=== PATIENT | male | born 1930 | race Caucasian/White ===

== ENCOUNTER → 2017-09-28 | Outpatient (CLI) | payer MEDICARE, OTHER ==
[2017-07-01 10:39] VITALS: BMI 15.3
[~2017-09-28] MED LIST: ACET-1966 PO; ACET-2007 PO; ALEN70TA43 PO; AMLO-96 PO; AMLO-99 PO; AMLO2.5T74 PO; AMOX-559 PO; ASP325 PO; ASPI-1471 PO; ASPI-715 PO; ASPI-719 PO; CALC-515 PO; CALC-521 PO; CALC-852 PO; CEP500 PO; CHOL400C10 PO; CHOL400T29 PO; CIP500 PO; DOC100 PO; DOCU-299 PO; DOCU-416 PO; ENO30I SC; ENOX40DI8 SQ; FERR-53 PO; GLUCOSAMINE 1,1 EACH PO; LOR10 PO; LORA-802 PO; LUTE20CA11 PO; MIRA50TA PO; MULT-1335 PO; MULT-865 PO; NAPR220T52 PO; OMEG-11 PO; OMEP-114 PO; OMEP-125 PO; OMEP-218 PO; OXYC-373 PO; OXYGENHOME INH; PER PO; PNEU0.5D3 IM; POTA-23 PO; PROM12.546 PO; PSYL1PAC24 PO; RANI-315 PO; SENN-274 PO; SENN8.6T34 PO; TADA20TA33 PO; TROS20TA5 PO; TROS60CA PO; WARF-1 PO; ZINC50TA43 PO; [UNRECOGNIZED DRUG - CODE] PO; [UNRECOGNIZED DRUG - CODE] PO; [UNRECOGNIZED DRUG - SUPPLY]
[2017-09-28 08:35] LABS: INR 3.42
== END ==
LOC: ZZSPRING 00:20
PROVIDERS: ATTEND Family Medicine
DX: I10 Essential (primary) hypertension (principal); Z79.01 Long term (current) use of anticoagulants
CPT/HCPCS: 36415; 82310; 82374; 82435; 82565; 82947; 84132; 84295; 84520; 85610

== ENCOUNTER → 2017-10-05 | Outpatient (CLI) | payer MEDICARE, OTHER ==
[2017-07-01 10:39] VITALS: BMI 15.3
[2017-10-05 08:50] LABS: INR 2.09
== END ==
LOC: ZZSPRING 03:07
PROVIDERS: ATTEND Family Medicine
DX: Z51.81 Encounter for therapeutic drug level monitoring (principal); Z79.01 Long term (current) use of anticoagulants
CPT/HCPCS: 36415; 85610

== ENCOUNTER → 2017-10-19 | Outpatient (CLI) | payer MEDICARE, OTHER ==
[2017-07-01 10:39] VITALS: BMI 15.3
[2017-10-19 08:38] LABS: INR 1.65
== END ==
LOC: ZZSPRING 02:43
PROVIDERS: ATTEND Internal Medicine
DX: I63.9 Cerebral infarction, unspecified (principal)
CPT/HCPCS: 36415; 85610

== ENCOUNTER → 2017-11-02 | Outpatient (CLI) | payer MEDICARE, OTHER ==
[2017-07-01 10:39] VITALS: BMI 15.3
[~2017-11-02] MED LIST changes: +ACET-2031 PO
[2017-11-02 08:57] LABS: INR 2.03
== END ==
LOC: ZZSPRING 01:45
PROVIDERS: ATTEND Pharmacist Pharmacotherapy
DX: I63.9 Cerebral infarction, unspecified (principal)
CPT/HCPCS: 36415; 85610

== ENCOUNTER → 2017-11-11 | Outpatient (CLI) | payer MEDICARE, OTHER ==
[2017-07-01 10:39] VITALS: BMI 15.3
--- NOTE | 2017-11-11 17:21 | RADIOLOGY IMAGING REPORT ---
[place] [facility] [place] NAME: Tolu Katz : 1930 MR: [id number] V: [id number] EXAM DATE: ORDERING PHYSICIAN: HODA RAM TECHNOLOGIST: [place] [facility] [place] Tolu Katz : 1930 Visit/Account:[id number] Date of Sevice: 11/11/2017 Exam type: HIP RIGHT History: fall, hip pain, evaluate for FX Comparison: February 17, 2017. Findings: Left hip arthroplasty appears in good anatomic alignment. There are mild degenerative changes of the right hip joint. No evidence of acute fracture or dislocation involving the right hip. Old pubic b one fractures also again seen. There are surgical clips in the pelvis. Extensive spondylotic change s in the visual as lower lumbar spine also noted IMPRESSION: 1. There is no evidence of acute fracture station involving the right hip. Additional chronic findings as described above Report Dictated By: Aleida Mckeon MD at 11/11/2017 5:15 PM Report E-Signed By: Aleida Mckeon MD at 11/11/2017 5:17 PM WSN:[email or web address]
== END ==
LOC: RAD 15:25
PROVIDERS: ATTEND Nurse Practitioner Family
DX: M25.551 Pain in right hip (principal)

== ENCOUNTER → 2017-11-16 | Outpatient (CLI) | payer MEDICARE, OTHER ==
[2017-07-01 10:39] VITALS: BMI 15.3
== END ==
LOC: ZZSPRING 01:13
PROVIDERS: ATTEND Urology
DX: C61 Malignant neoplasm of prostate (principal)

== ENCOUNTER → 2017-11-16 | Outpatient (CLI) | payer MEDICARE, OTHER ==
[2017-07-01 10:39] VITALS: BMI 15.3
[2017-11-16 09:09] LABS: INR 2.27
== END ==
LOC: ZZSPRING 01:14
PROVIDERS: ATTEND Pharmacist Pharmacotherapy
DX: I63.9 Cerebral infarction, unspecified (principal)
CPT/HCPCS: 36415; 84153; 85610

== ENCOUNTER → 2017-11-17 | Outpatient (CLI) | payer MEDICARE, OTHER ==
[2017-07-01 10:39] VITALS: BMI 15.3
--- NOTE | 2017-11-17 15:36 | RADIOLOGY IMAGING REPORT ---
[place] [facility]: Tolu Katz : 1930 MR: [id number] V: [id number] EXAM DATE: ORDERING PHYSICIAN: KAMILLA HESTER TECHNOLOGIST: Location: [facility] Patient: Tolu Katz : 1930 Visit/Account:[id number] Date of Sevice: 11/17/2017 ABDOMEN PELVIS ESWL CYSTO W/O HISTORY: Kidney stones, back pain TECHNIQUE: Axial images acquired through the abdomen/pelvis. Coronal and sagittal reformatting also performed. No IV contrast administered. Dose Lowering Technique One of the following dose optimization techniques was utilized in the performance of this exam: Autom ated exposure control; adjustment of the mA and/or kV according to the patient's size; or use of an i terative reconstruction technique. Specific details can be referenced in the facility's radiology C T exam operational policy. COMPARISON: June 30, 2017 FINDINGS: Visualized lung bases: Increasing scarring and peribronchial thickening in the lung bases. Calcifie d granuloma in the right middle lobe unchanged . Mild dilatation of the descending thoracic aorta m easuring up to 3.7 cm. Extensive calcifications within the thoracic aorta noted are moderate coronar y artery calcifications Hepatobiliary: 2.3 cm left hepatic lobe cyst again noted. Additional tiny hypodensity posterior rig ht lobe also unchanged likely representing an additional cyst Spleen: Negative. Adrenals: Negative. Pancreas: Negative. Kidneys ureters and bladder: Multiple bilateral renal cysts are again seen in addition to several sma ller hypodensities which are too small to characterize. There are numerous nonobstructing calculi se en in both renal collecting systems; the largest on the right in the upper pole measuring 5 x 3 mm. The largest on the left in the lower pole measuring 9 x 4 mm The bladder is quite distended to just below the level the umbilicus. Genitalia: The pelvic structures are not ideally evaluated due to numerous artifacts from left hip a rthroplasty. There are numerous clips in the pelvis likely related to prior prostatectomy. GI: There Is extensive diverticulosis throughout the colon although no CT evidence of acute divertic ulitis. There is a large hiatal hernia Vessels/spaces/nodes: There is marked ectasia of the thoracic aorta extensive vascular calcification s. 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 Old comminuted fractures through the left-sided the pubi s. Extensive scoliosis of the thoracolumbar spine with extensive multilevel spondylotic changes. Additional findings: None pertinent. IMPRESSION: Increasing scarring and peribronchial thickening of the lung bases Mild dilatation of descending thoracic aorta measuring up to 3.7 centers in diameter. Extensive vasc ular calcination occasions are seen throughout the thoracic and abdominal aorta Numerous artifacts resulting calculi seen in the renal collecting systems bilaterally as discussed ab ove Bladder is quite distended to just below the level the umbilicus Additional chronic findings as described Report Dictated By: Aleida Mckeon MD at 11/17/2017 3:16 PM Report E-Signed By: Aleida Mckeon MD at 11/17/2017 3:32 PM WSN:[email or web address]
== END ==
LOC: CT 01:37
PROVIDERS: ATTEND Urology
DX: I25.10 Atherosclerotic heart disease of native coronary artery without angina pectoris (principal); N20.0 Calculus of kidney; C61 Malignant neoplasm of prostate; R91.8 Other nonspecific abnormal finding of lung field; I71.4 Abdominal aortic aneurysm, without rupture
CPT/HCPCS: 36415; 74176; 84153

== ENCOUNTER → 2017-12-15 | Outpatient (CLI) | payer MEDICARE, OTHER ==
[2017-07-01 10:39] VITALS: BMI 15.3
[2017-12-15 08:50] LABS: INR 2.19
== END ==
LOC: ZZSPRING 00:32
PROVIDERS: ATTEND Internal Medicine
DX: Z96.0 Presence of urogenital implants (principal); Z99.81 Dependence on supplemental oxygen; I82.591 Chronic embolism and thrombosis of other specified deep vein of right lower extremity
CPT/HCPCS: 36415; 85610

== ENCOUNTER → 2018-01-11 | Outpatient (CLI) | payer MEDICARE, OTHER ==
[2017-07-01 10:39] VITALS: BMI 15.3
[2018-01-11 08:18] LABS: INR 2.22
== END ==
LOC: ZZSPRING 00:01
PROVIDERS: ATTEND Pharmacist Pharmacotherapy
DX: I63.9 Cerebral infarction, unspecified (principal)
CPT/HCPCS: 36415; 85610

== ENCOUNTER → 2018-02-08 | Outpatient (CLI) | payer MEDICARE, OTHER ==
[2017-07-01 10:39] VITALS: BMI 15.3
[2018-02-08 08:32] LABS: INR 2.2
== END ==
LOC: ZZSPRING 02:11
PROVIDERS: ATTEND Pharmacist Pharmacotherapy
DX: Z51.81 Encounter for therapeutic drug level monitoring (principal); Z79.01 Long term (current) use of anticoagulants
CPT/HCPCS: 36415; 85610

== ENCOUNTER → 2018-03-08 | Outpatient (CLI) | payer MEDICARE, OTHER ==
[2017-07-01 10:39] VITALS: BMI 15.3
[2018-03-08 08:08] LABS: INR 2.03
== END ==
LOC: ZZSPRING 02:28
PROVIDERS: ATTEND Pharmacist Pharmacotherapy
DX: I63.9 Cerebral infarction, unspecified (principal)
CPT/HCPCS: 36415; 85610

== ENCOUNTER → 2018-03-22 | Outpatient (CLI) | payer MEDICARE, OTHER ==
[2017-07-01 10:39] VITALS: BMI 15.3
== END ==
LOC: ZZSPRING 01:12
PROVIDERS: ATTEND Internal Medicine
DX: M62.81 Muscle weakness (generalized) (principal); D50.9 Iron deficiency anemia, unspecified; I10 Essential (primary) hypertension; C61 Malignant neoplasm of prostate; I25.10 Atherosclerotic heart disease of native coronary artery without angina pectoris; K21.9 Gastro-esophageal reflux disease without esophagitis; Z86.73 Personal history of transient ischemic attack (TIA), and cerebral infarction without residual deficits; R26.2 Difficulty in walking, not elsewhere classified; F80.1 Expressive language disorder; K44.9 Diaphragmatic hernia without obstruction or gangrene
CPT/HCPCS: 36415; 82040; 82247; 82310; 82374; 82435; 82565; 82947; 84075; 84132; 84155; 84295; 84450; 84460; 84520

== ENCOUNTER → 2018-04-05 | Outpatient (CLI) | payer MEDICARE, OTHER ==
[2017-07-01 10:39] VITALS: BMI 15.3
[~2018-04-05] MED LIST changes: +AMLO-111 PO; +AMLO-113 PO; -AMLO-96 PO; -AMLO-99 PO; -AMLO2.5T74 PO; +AMLO2.5T76 PO
[2018-04-05 08:48] LABS: INR 2.39
== END ==
LOC: ZZSPRING 06:03
PROVIDERS: ATTEND Pharmacist Pharmacotherapy
DX: I63.9 Cerebral infarction, unspecified (principal)
CPT/HCPCS: 36415; 85610

== ENCOUNTER → 2018-05-03 | Outpatient (CLI) | payer MEDICARE, OTHER ==
[2017-07-01 10:39] VITALS: BMI 15.3
[2018-05-03 08:55] LABS: INR 2.34
== END ==
LOC: ZZSPRING 00:50
PROVIDERS: ATTEND Pharmacist Pharmacotherapy
DX: I63.9 Cerebral infarction, unspecified (principal)
CPT/HCPCS: 36415; 85610

== ENCOUNTER → 2018-05-31 | Outpatient (CLI) | payer MEDICARE, OTHER ==
[2017-07-01 10:39] VITALS: BMI 15.3
[~2018-05-31] MED LIST changes: -SENN8.6T34 PO; +SENN8.6T35 PO
[2018-05-31 08:10] LABS: INR 2.19
== END ==
LOC: ZZSPRING 01:35
PROVIDERS: ATTEND Pharmacist Pharmacotherapy
DX: Z51.81 Encounter for therapeutic drug level monitoring (principal); Z79.01 Long term (current) use of anticoagulants; I63.9 Cerebral infarction, unspecified
CPT/HCPCS: 36415; 85610

== ENCOUNTER → 2018-06-28 | Outpatient (CLI) | payer MEDICARE, OTHER ==
[2017-07-01 10:39] VITALS: BMI 15.3
[2018-06-28 08:30] LABS: INR 2.03
== END ==
LOC: ZZSPRING 01:21
PROVIDERS: ATTEND Pharmacist Pharmacotherapy
DX: Z51.81 Encounter for therapeutic drug level monitoring (principal); Z79.01 Long term (current) use of anticoagulants; I63.9 Cerebral infarction, unspecified
CPT/HCPCS: 36415; 85610

== ENCOUNTER 2018-07-19 17:22 | Inpatient (IN) | payer MEDICARE, OTHER ==
[2017-07-01 10:39] VITALS: Wt 53.1 kg
[~2018-07-19 17:22] MED LIST changes: +AMLO-111 PO; +AMLO-113 PO; -AMLO-125 PO; -AMLO-127 PO; +AMLO2.5T76 PO; -AMLO2.5T78 PO
[2018-07-19] MEDS ORDERED: PHYTONADIONE (*) 10 MG/ML AMP 10 MG in NS(*) 0.9% 50 ML BAG 50 ML IVPB ONE (17:40)
[2018-07-19] MEDS ORDERED: MORPHINE 4 MG/ML SDV IVP ONE (17:50)
--- NOTE | 2018-07-19 17:56 | ER Report ---
History and Physical Time Seen By MD: 17:26 Hx. of Stated Complaint: unwitnessed fall at [facility]. HPI/ROS CHIEF COMPLAINT: Decreased mental status, fall HISTORY OF PRESENT ILLNESS: 88-year-old male patient presents to the emergency room via EMS with complaint of altered mental status, fall. Patient was found at [facility], where he lives, in his bathroom. They're unsure how long he had been down. They did attempt to get him up and we will set him up and he was able to talk. However after a few minutes the patient was no longer able to talk and respond. At that time EMS was called. EMS state that in route he had a difficult time clearing secretions. Patient does have a DO NOT INTUBATE status. Patient was not able to answer any questions due to mental status. REVIEW OF SYSTEMS: Unable to obtain secondary to mental status. Allergies: Coded Allergies: No Known Drug Allergies (Unverified , 12/16/16) Home Meds Active Scripts Warfarin Sodium (COUMADIN) 5 Mg Tablet, 1 TAB PO QDAY, #34 TAB 5 Refills Or as directed based on INR. Prov:AVELINA TAMEZ PHARMD 03/08/18 Alendronate Sodium (FOSAMAX) 70 Mg Tablet, 1 TAB PO QWK for 90 Days, #12 TAB 4 Refills Prov:EDIS KIRBY MD 11/10/17 Potassium Chloride (KLOR-CON 10) 10 Meq Tablet.er, 1 TAB PO BID for 14 Days, #28 TAB 1 Refill Prov:EDIS KIRBY MD 10/30/17 Amlodipine Besylate (AMLODIPINE BESYLATE) 2.5 Mg Tablet, 1 TAB PO QDAY, #90 TAB 4 Refills Prov:EDIS KIRBY MD 10/21/17 [place]-3 Fatty Acids/Fish Oil (FISH OIL 1,000 MG CAPSULE) 1 Each Capsule, 1 CAP PO QDAY, #90 CAPSULE 4 Refills Prov:BETH TAMEZ MD 09/30/17 Sennosides/Docusate Sodium (SENNA-TIME S TABLET) 1 Each Tablet, 1 EACH PO BID, #60 TAB 1 Refill Prov:LAURA BOWSER MD 07/05/17 Reported Medications Acetaminophen (ACETAMINOPHEN) 325 Mg Tablet, 2 TAB PO Q4-6H PRN for pain, fever, TAB 10/30/17 Oxygen (OXYGEN) Inha, 0.5-2 L INH DAILY, L 0.5L during day 2L at NOC 09/24/17 Calcium Carbonate/Vitamin D3 (CALCIUM + VITAMIN D TABLET) 1 Each Tablet, 1 TAB PO QDAY 04/07/17 Multivitamin (DAILY MULTIPLE VITAMIN) 1 Each Tablet, 1 TAB PO DAILY 06/05/15 Past Medical/Surgical History Patient has a past medical history of CVA, atherosclerosis, hypertension, asthma, pneumonia, reflux, prostate cancer, rib fracture, arthritis, anemia. Patient has a surgical history of tonsillectomy, are cysts all sphincter for urinary control. Reviewed Nurses Notes: Yes Hx Smoking: No Smoking Status: Former Smoker Hx Substance Use Disorder: No Constitutional Vital Sign - Last 24 Hours 07/19/18 07/19/18 07/19/18 07/19/18 17:22 17:25 17:30 17:34 Temp 97.7 Pulse 65 70 Resp 18 16 B/P (MAP) 153/73 (99) 154/88 (110) 162/87 Pulse Ox 88 91 O2 Delivery Nasal Cannula 07/19/18 07/19/18 07/19/18 07/19/18 17:45 17:50 17:52 17:55 Pulse 67 Resp 14 B/P (MAP) 183/99 (127) 155/88 (110) 172/103 (126) Pulse Ox 96 07/19/18 07/19/18 07/19/18 18:00 18:15 18:22 Pulse 66 Resp 16 B/P (MAP) 161/88 (112) 181/99 (126) Physical Exam General Appearance: The patient is unresponsive, has no immediate need for airway protection and no current signs of toxicity. Eyes: Pupils equal and round no injection. Respiratory: Chest is non tender, lungs are clear to auscultation. Cardiac: regular rate and rhythm Gastrointestinal: Abdomen is soft and non tender, no masses, bowel sounds normal. Musculoskeletal: Neck: Neck is unable to assess this time secondary to c-collar Extremities have full range of motion and are non tender. Skin: No rashes or lesions. DIFFERENTIAL DIAGNOSIS: After history and physical exam differential diagnosis was considered for ME, etc. cranial hemorrhage, CVA. Medical Decision Making Data Points Result Diagram: 07/19/18 1740 07/19/181739 Laboratory Hematology Test 07/19/18 17:40 Red Blood Count 4.00 M/uL (4.00-5.60) Mean Corpuscular Volume 102.6 fL (80.0-96.0) Mean Corpuscular Hemoglobin 34.2 pg (26.0-33.0) Mean Corpuscular Hemoglobin Concent 33.3 g/dL (32.0-36.0) Red Cell Distribution Width 14.7 % (11.5-14.5) Mean Platelet Volume 8.3 fL (7.2-11.1) Neutrophils (%) (Auto) 47.3 % (39.4-72.5) Lymphocytes (%) (Auto) 31.3 % (17.6-49.6) Monocytes (%) (Auto) 18.1 % (4.1-12.4) Eosinophils (%) (Auto) 2.5 % (0.4-6.7) Basophils (%) (Auto) 0.8 % (0.3-1.4) Nucleated RBC Relative Count (auto) 0.0 /100WBC Neutrophils # (Auto) 2.4 K/uL (2.0-7.4) Lymphocytes # (Auto) 1.6 K/uL (1.3-3.6) Monocytes # (Auto) 0.9 K/uL (0.3-1.0) Eosinophils # (Auto) 0.1 K/uL (0.0-0.5) Basophils # (Auto) 0.0 K/uL (0.0-0.1) Nucleated RBC Absolute Count (auto) 0.00 K/uL Peripheral Blood Smear Y/N Prothrombin Time 26.0 seconds (12.0-14.4) Prothromb Time International Ratio 2.33 Activated Partial Thromboplast Time 40 seconds (23-35) Sodium Level 136 mmol/L (137-145) Potassium Level 4.9 mmol/L (3.5-5.0) Chloride Level 103 mmol/L (98-107) Carbon Dioxide Level 25 mmol/L (22-30) Blood Urea Nitrogen 25 mg/dl (9-21) Creatinine 0.90 mg/dl (0.66-1.25) Glomerular Filtration Rate Calc > 60.0 Random Glucose 105 mg/dl (75-110) Calcium Level 9.2 mg/dl (8.4-10.2) Total Bilirubin 0.3 mg/dl (0.2-1.3) Aspartate Amino Transf (AST/SGOT) 33 U/L (0-35) Alanine Aminotransferase (ALT/SGPT) 30 U/L (0-56) Alkaline Phosphatase 69 U/L (0-126) Troponin I < 0.012 ng/ml Total Protein 7.3 g/dl (6.3-8.2) Albumin 3.9 g/dl (3.5-5.0) Chemistry Test 07/19/18 17:40 White Blood Count 5.2 k/uL (4.5-11.0) Red Blood Count 4.00 M/uL (4.00-5.60) Hemoglobin 13.7 g/dL (14.0-18.0) Hematocrit 41.1 % (42.0-52.0) Mean Corpuscular Volume 102.6 fL (80.0-96.0) Mean Corpuscular Hemoglobin 34.2 pg (26.0-33.0) Mean Corpuscular Hemoglobin Concent 33.3 g/dL (32.0-36.0) Red Cell Distribution Width 14.7 % (11.5-14.5) Platelet Count 231 K/uL (150-450) Mean Platelet Volume 8.3 fL (7.2-11.1) Neutrophils (%) (Auto) 47.3 % (39.4-72.5) Lymphocytes (%) (Auto) 31.3 % (17.6-49.6) Monocytes (%) (Auto) 18.1 % (4.1-12.4) Eosinophils (%) (Auto) 2.5 % (0.4-6.7) Basophils (%) (Auto) 0.8 % (0.3-1.4) Nucleated RBC Relative Count (auto) 0.0 /100WBC Neutrophils # (Auto) 2.4 K/uL (2.0-7.4) Lymphocytes # (Auto) 1.6 K/uL (1.3-3.6) Monocytes # (Auto) 0.9 K/uL (0.3-1.0) Eosinophils # (Auto) 0.1 K/uL (0.0-0.5) Basophils # (Auto) 0.0 K/uL (0.0-0.1) Nucleated RBC Absolute Count (auto) 0.00 K/uL Peripheral Blood Smear Y/N Prothrombin Time 26.0 seconds (12.0-14.4) Prothromb Time International Ratio 2.33 Activated Partial Thromboplast Time 40 seconds (23-35) Glomerular Filtration Rate Calc > 60.0 Calcium Level 9.2 mg/dl (8.4-10.2) Total Bilirubin 0.3 mg/dl (0.2-1.3) Aspartate Amino Transf (AST/SGOT) 33 U/L (0-35) Alanine Aminotransferase (ALT/SGPT) 30 U/L (0-56) Alkaline Phosphatase 69 U/L (0-126) Troponin I < 0.012 ng/ml Total Protein 7.3 g/dl (6.3-8.2) Albumin 3.9 g/dl (3.5-5.0) Coagulation Test 07/19/18 17:40 Prothrombin Time 26.0 seconds Prothromb Time International Ratio 2.33 Activated Partial Thromboplast Time 40 seconds EKG/Imaging EKG Interpretation 12 lead EKG: Rhythm: normal sinus rhythm with ventricular rate of 80 bpm Malott: Left axis deviation QRS: normal ST segments: normal Imaging EXAMINATION: CT HEAD AND CERVICAL SPINE WITHOUT CONTRAST COMPARISON: None available HISTORY: Fall. Decreased mental status. PROCEDURE: Noncontrast CT from the vertex through the skull base and multiplanar noncontrast cervical spine. One of the following dose optimization techniques was utilized in the performance of this exam: Automated exposure control; adjustment of the mA and/or kV according to the patient's size; or use of an iterative reconstruction technique. Specific details can be referenced in the facility's radiology CT exam operational policy. FINDINGS: CT head without contrast: Brain volume: Moderate global atrophy. Hemorrhage/extra-axial fluid: Right hemisphere 7.7 x 3.9 x 5.7 cm (86 mL) heterogeneous intraparenchymal hematoma with mild surrounding vasogenic edema. Mass effect/midline shift/edema: Mass effect from the hemorrhage results in mild effacement of the surrounding sulci as well as 6 mm of leftward midline shift. No evidence of herniation at this time. Ischemia: Chronic white matter disease with small regions of encephalomalacia most notably in the left temporal lobe. No definite site of acute guardado-white differentiation loss is identified. Ventricles and basal cisterns: The hemorrhage results in partial effacement of the right lateral ventricle. Subtle hypodensity within the right ventricle near the midline is favored to be compressed calcified choroid plexus, less likely intraventricular hemorrhage. There is no evidence of acute hydrocephalus at this time. Basal cisterns are open. Posterior fossa: Mild atrophy. No acute changes. Vessels: Atherosclerosis. Calvarium, skull base, and scalp: Negative. Visualized sinuses and orbits: Within normal limits. CT cervical spine without contrast: Alignment: Minimal degenerative anterolisthesis at C3-C4 and C4-C5. No acute malalignment. Cranio-cervical junction: Alignment is within normal limits. Moderate degenerative change at the atlantodens interval. Vertebral bodies: No fracture. Posterior elements: Facet alignment is within normal limits with multilevel advanced facet arthropathy. No fracture. Disc spaces: Moderate degenerative disc disease at C5-C6 and C6-C7. Small posterior disc and osteophyte complexes at C3-C4, C4-C5, C5-C6, and C6-C7 results in multilevel mild canal narrowing. Additionally, the combination of uncovertebral joint hypertrophy with facet arthropathy results in mild to moderate narrowing of multiple neural foramina. Hardware: None. Soft tissues: No acute changes. Carotid atherosclerosis. Visualized upper chest: Negative. IMPRESSION: 1. Right cerebral hemisphere 7.7 x 3.9 x 5.7 cm (86 mL) heterogeneous intraparenchymal hematoma with mild surrounding vasogenic edema. 2. Mass effect from the hemorrhage results in 6 mm of leftward midline shift as well as effacement of the right lateral ventricle but there is no evidence of herniation or hydrocephalus at this time. 3. Chronic white matter disease with regions of encephalomalacia. No CT findings of acute ischemia. 4. No cervical spine fracture or acute malalignment. 5. Cervical degenerative change as described above. 6. Carotid atherosclerosis. Results were discussed with PAULA FERREIRA at 07/19/2018 5:56 PM. Report Dictated By: Serge Bonner MD at 07/19/2018 5:52 PM Report E-Signed By: Serge Bonner MD at 07/19/2018 6:04 PM ED Course/Re-evaluation ED Course Patient was admitted to an exam room, history and physical were obtained. Differential diagnoses were considered. On examination lungs are clear, heart is regular, patient is unresponsive. A CT scan of the head was done which was signi ficant for a large intracranial hemorrhage. CT scan of the cervical spine was negative. I did call and speak with the patient's daughter, Martín Robison, we discussed about the poor prognosis of her father at this point time. I do not believe that if we were to intubate, which is against her current order, that the patient would ever wake up again. It is my thought that would delay the inevitable. I believe this is a fatal injury. His daughter felt that the patient would be better served with his wishes to go ahead and do comfort care. As a result of that we will go ahead and admit the patient to the floor under comfort care. Decision to Disposition Date: Jul 19, 2018 Decision to Disposition Time: 18:13 Depart Departure Latest Vital Signs Vital Signs Date Time Temp Pulse Resp B/P (MAP) Pulse Ox O2 Delivery O2 Flow Rate FiO2 07/19/18 18:22 66 16 07/19/18 18:15 181/99 (126) 07/19/18 17:52 96 07/19/18 17:34 97.7 Nasal Cannula Impression: Primary Impression: Intracranial hemorrhage Additional Impression: Need for comfort care Condition: Condition Unchanged Disposition: Admitted from ER Referrals: EDIS KIRBY MD (PCP) Problem Qualifiers PAULA FERREIRA Jul 19, 2018 17:56
[2018-07-19 18:00] LABS: INR 2.33
[2018-07-19 18:06] LABS: PLATELET COUNT, AUTOMATED 231 K/uL (150-450)
--- NOTE | 2018-07-19 18:08 | RADIOLOGY IMAGING REPORT ---
FACILITY: [facility] PATIENT NAME: Tolu Katz : 1930 MR: [id number] V: [id number] EXAM DATE: ORDERING PHYSICIAN: PAULA FERREIRA TECHNOLOGIST: Location: [facility] [place] Patient: Tolu Katz : 1930 Visit/Account:[id number] Date of Sevice: 07/19/2018 EXAMINATION: CT HEAD AND CERVICAL SPINE WITHOUT CONTRAST COMPARISON: None available HISTORY: Fall. Decreased mental status. PROCEDURE: Noncontrast CT from the vertex through the skull base and multiplanar noncontrast cervical spine. One of the following dose optimization techniques was utilized in the performance of this exa m: Automated exposure control; adjustment of the mA and/or kV according to the patient's size; or use of an iterative reconstruction technique. Specific details can be referenced in the facility's [facility] CT exam operational policy. FINDINGS: CT head without contrast: Brain volume: Moderate global atrophy. Hemorrhage/extra-axial fluid: Right hemisphere 7.7 x 3.9 x 5.7 cm (86 mL) heterogeneous intraparenchy mal hematoma with mild surrounding vasogenic edema. Mass effect/midline shift/edema: Mass effect from the hemorrhage results in mild effacement of the strickland rrounding sulci as well as 6 mm of leftward midline shift. No evidence of herniation at this time. Ischemia: Chronic white matter disease with small regions of encephalomalacia most notably in the lef t temporal lobe. No definite site of acute guardado-white differentiation loss is identified. Ventricles and basal cisterns: The hemorrhage results in partial effacement of the right lateral vent ricle. Subtle hypodensity within the right ventricle near the midline is favored to be compressed ca lcified choroid plexus, less likely intraventricular hemorrhage. There is no evidence of acute hydro cephalus at this time. Basal cisterns are open. Posterior fossa: Mild atrophy. No acute changes. Vessels: Atherosclerosis. Calvarium, skull base, and scalp: Negative. Visualized sinuses and orbits: Within normal limits. CT cervical spine without contrast: Alignment: Minimal degenerative anterolisthesis at C3-C4 and C4-C5. No acute malalignment. Cranio-cervical junction: Alignment is within normal limits. Moderate degenerative change at the eleuterio antodens interval. Vertebral bodies: No fracture. Posterior elements: Facet alignment is within normal limits with multilevel advanced facet arthropath y. No fracture. Disc spaces: Moderate degenerative disc disease at C5-C6 and C6-C7. Small posterior disc and osteoph yte complexes at C3-C4, C4-C5, C5-C6, and C6-C7 results in multilevel mild canal narrowing. Addition ally, the combination of uncovertebral joint hypertrophy with facet arthropathy results in mild to mo derate narrowing of multiple neural foramina. Hardware: None. Soft tissues: No acute changes. Carotid atherosclerosis. Visualized upper chest: Negative. IMPRESSION: 1. Right cerebral hemisphere 7.7 x 3.9 x 5.7 cm (86 mL) heterogeneous intraparenchymal hematoma with mild surrounding vasogenic edema. 2. Mass effect from the hemorrhage results in 6 mm of leftward midline shift as well as effacement o f the right lateral ventricle but there is no evidence of herniation or hydrocephalus at this time. 3. Chronic white matter disease with regions of encephalomalacia. No CT findings of acute ischemia. 4. No cervical spine fracture or acute malalignment. 5. Cervical degenerative change as described above. 6. Carotid atherosclerosis. Results were discussed with PAULA FERREIRA at 07/19/2018 5:56 PM. Report Dictated By: Serge Bonner MD at 07/19/2018 5:52 PM Report E-Signed By: Serge Bonner MD at 07/19/2018 6:04 PM WSN:[email or web address]
--- NOTE | 2018-07-19 18:09 | RADIOLOGY IMAGING REPORT ---
FACILITY: [facility] PATIENT NAME: Tolu Katz : 1930 MR: [id number] V: [id number] EXAM DATE: ORDERING PHYSICIAN: PAULA FERREIRA TECHNOLOGIST: Location: [facility] Patient: Tolu Katz : 1930 Visit/Account:[id number] Date of Sevice: 07/19/2018 EXAMINATION: CT HEAD AND CERVICAL SPINE WITHOUT CONTRAST COMPARISON: None available HISTORY: Fall. Decreased mental status. PROCEDURE: Noncontrast CT from the vertex through the skull base and multiplanar noncontrast cervical spine. One of the following dose optimization techniques was utilized in the performance of this exa m: Automated exposure control; adjustment of the mA and/or kV according to the patient's size; or use of an iterative reconstruction technique. Specific details can be referenced in the facility's [facility] CT exam operational policy. FINDINGS: CT head without contrast: Brain volume: Moderate global atrophy. Hemorrhage/extra-axial fluid: Right hemisphere 7.7 x 3.9 x 5.7 cm (86 mL) heterogeneous intraparenchy mal hematoma with mild surrounding vasogenic edema. Mass effect/midline shift/edema: Mass effect from the hemorrhage results in mild effacement of the strickland rrounding sulci as well as 6 mm of leftward midline shift. No evidence of herniation at this time. Ischemia: Chronic white matter disease with small regions of encephalomalacia most notably in the lef t temporal lobe. No definite site of acute guardado-white differentiation loss is identified. Ventricles and basal cisterns: The hemorrhage results in partial effacement of the right lateral vent ricle. Subtle hypodensity within the right ventricle near the midline is favored to be compressed ca lcified choroid plexus, less likely intraventricular hemorrhage. There is no evidence of acute hydro cephalus at this time. Basal cisterns are open. Posterior fossa: Mild atrophy. No acute changes. Vessels: Atherosclerosis. Calvarium, skull base, and scalp: Negative. Visualized sinuses and orbits: Within normal limits. CT cervical spine without contrast: Alignment: Minimal degenerative anterolisthesis at C3-C4 and C4-C5. No acute malalignment. Cranio-cervical junction: Alignment is within normal limits. Moderate degenerative change at the eleuterio antodens interval. Vertebral bodies: No fracture. Posterior elements: Facet alignment is within normal limits with multilevel advanced facet arthropath y. No fracture. Disc spaces: Moderate degenerative disc disease at C5-C6 and C6-C7. Small posterior disc and osteoph yte complexes at C3-C4, C4-C5, C5-C6, and C6-C7 results in multilevel mild canal narrowing. Addition ally, the combination of uncovertebral joint hypertrophy with facet arthropathy results in mild to mo derate narrowing of multiple neural foramina. Hardware: None. Soft tissues: No acute changes. Carotid atherosclerosis. Visualized upper chest: Negative. IMPRESSION: 1. Right cerebral hemisphere 7.7 x 3.9 x 5.7 cm (86 mL) heterogeneous intraparenchymal hematoma with mild surrounding vasogenic edema. 2. Mass effect from the hemorrhage results in 6 mm of leftward midline shift as well as effacement o f the right lateral ventricle but there is no evidence of herniation or hydrocephalus at this time. 3. Chronic white matter disease with regions of encephalomalacia. No CT findings of acute ischemia. 4. No cervical spine fracture or acute malalignment. 5. Cervical degenerative change as described above. 6. Carotid atherosclerosis. Results were discussed with PAULA FERREIRA at 07/19/2018 5:56 PM. Report Dictated By: Serge Bonner MD at 07/19/2018 5:52 PM Report E-Signed By: Serge Bonner MD at 07/19/2018 6:04 PM WSN:[email or web address]
[2018-07-19 19:26] VITALS: BP 174/102
[2018-07-19] MEDS ORDERED: MORPHINE 2 MG/ML SYR IVP PRN (20:20)
--- NOTE | 2018-07-19 20:38 | History & Physical ---
History of Present Illness Chief Complaint unresponsive. History of Present Illness 88 yr old male who was found down and unresponsive at the care center this afternoon. Not sure if he fell. Patient not able to give any kind of history. ER record showed a massive intercerebral hemorrhage one the right with 6 mm of midline shift. Admitted for comfort care only after daughter in [place] was notified. On coumadin for correction atrial fib. Hypertensive. Prostate cancer. ASVD with previous CVA and dementia. GERD. History Unable To Obtain Past Medical: Unable to Obtain/Update (Patient unresponsive.) Home Meds Active Scripts Warfarin Sodium (COUMADIN) 5 Mg Tablet, 1 TAB PO QDAY, #34 TAB 5 Refills Or as directed based on INR. Prov:AVELINA TAMEZ PHARMD 03/08/18 Alendronate Sodium (FOSAMAX) 70 Mg Tablet, 1 TAB PO QWK for 90 Days, #12 TAB 4 Refills Prov:EDIS KIRBY MD 11/10/17 Potassium Chloride (KLOR-CON 10) 10 Meq Tablet.er, 1 TAB PO BID for 14 Days, #28 TAB 1 Refill Prov:EDIS KIRBY MD 10/30/17 Amlodipine Besylate (AMLODIPINE BESYLATE) 2.5 Mg Tablet, 1 TAB PO QDAY, #90 TAB 4 Refills Prov:EDIS KIRBY MD 10/21/17 [place]-3 Fatty Acids/Fish Oil (FISH OIL 1,000 MG CAPSULE) 1 Each Capsule, 1 CAP PO QDAY, #90 CAPSULE 4 Refills Prov:BETH TAMEZ MD 09/30/17 Sennosides/Docusate Sodium (SENNA-TIME S TABLET) 1 Each Tablet, 1 EACH PO BID, #60 TAB 1 Refill Prov:LAURA BOWSER MD 07/05/17 Reported Medications Acetaminophen (ACETAMINOPHEN) 325 Mg Tablet, 2 TAB PO Q4-6H PRN for pain, fever, TAB 10/30/17 Oxygen (OXYGEN) Inha, 0.5-2 L INH DAILY, L 0.5L during day 2L at NOC 09/24/17 Calcium Carbonate/Vitamin D3 (CALCIUM + VITAMIN D TABLET) 1 Each Tablet, 1 TAB PO QDAY 04/07/17 Multivitamin (DAILY MULTIPLE VITAMIN) 1 Each Tablet, 1 TAB PO DAILY 06/05/15 Allergies: Coded Allergies: No Known Drug Allergies (Unverified , 12/16/16) Patient History: FH: HTN (hypertension) FATHER, , Age:84 FH: cerebral aneurysm BROTHER, , Age:62 FH: chronic renal disease MOTHER, , Age:77 FH: heart disease FATHER, , Age:84 Unobtainable due to patient's condition Hx Smoking: No Smoking Status: Former Smoker Caffeine Intake: Soda Caffeine/Cups Per Day: 1 DIET SODA PER DAY Hx Substance Use Disorder: No Review of Systems Other Unable to obtain. Exam Vital Signs Vital Signs Date Time Temp Pulse Resp B/P (MAP) Pulse Ox O2 Delivery O2 Flow Rate FiO2 07/19/18 19:30 89 Room Air 07/19/18 19:26 97.7 58 14 174/102 (126) General Appearance: Other (Unresponsive to all but painful stimuli over anterior tibial surface and major sternal pressure. ) Neuro: Other (Unresponsive. He does have grade 1/4 BR reflexes in both forearms and bilateral patellar reflexes 1/4. Muscle tone is almost rigid.) Eyes: Other (Pupils are mid position and fixed.) ENT: Other (No gag reflex.) Cardiovascular: Other (S1S2 are soft. Irregular rhythm. No murmurs.) Respiratory: Other (Upper airway noise. Lungs are actually clear.) Extremities: Other (No edema.) Integumentary: Other (Abrasion right wrist. Bruise right wrist is superficial. Chronic stasis changes both lower legs and feet.) Psych: Other (Unresponsive. ) Medical Decision Making Data Points Result Diagram: 07/19/18173907/19/181739 Item Value Date Time Prothromb Time International Ratio 2.33 07/19/181739 Prothrombin Time 26.0 seconds H 07/19/181739 Activated Partial Thromboplast Time 40 seconds H 07/19/181739 EKG / Imaging Monitor Interpretation: Atrial Fibrillation Imaging Reviewed. Pre-Admit Course ED Medications Reviewed. Medical Record Review: Yes Assessment and Plan Problems: (1) Intracranial hemorrhage Status: Acute Assessment & Plan: Unclear if due to spontaneous bleed from warfarin vs. fall. Bleed is massive and certainly do not expect recovery. Admitted for comfort care only. 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
--- NOTE | 2018-07-19 21:28 | EKG ---
FACILITY: [facility] PATIENT NAME: CHRISTAL CANO : [id number] MR: [id number] V: [id number] EXAM DATE: ORDERING PHYSICIAN: PAULA FERREIRA TECHNOLOGIST: Test Reason : Blood Pressure : / mmHG Vent. Rate : 071 BPM Atrial Rate : 071 BPM P-R Int : 164 ms QRS Dur : 094 ms QT Int : 420 ms P-R-T Axes : 013 -35 031 degrees QTc Int : 456 ms Normal sinus rhythm Left axis deviation Electrical interference precludes strict reading. Suggest repeat if clinically appropriate. When compared with ECG of 02-JUL-2017 17:45, T wave amplitude has increased in Lateral leads Confirmed by OTTO MEADOWS ([id number]) on 07/20/2018 2:58:04 AM Referred By: Confirmed By:OTTO MEADOWS
--- NOTE | 2018-07-20 03:14 | Death Summary ---
Pronounced Date: Jul 20, 2018 Pronounced Time: 54 Preliminary Cause of : Intercerebral hemorrhage, right hemisphere with severe midline shift Assessment: hypertension atrial fibrillaion ASVD Dementia Anticoagulant use with warfarin History of Present Illness Please see admission history and physical for details. Hospital Course Patient admitted for comfort care only given the severity of the cerebral hemorrhage. He did not regain any neurologic function and quietly at 0055 on 20 July 2018. Copies to: EDIS KIRBY MD ; Medical Records to be sent: History and Physical, Summary JOSHUA MEADOWS MD FACP Jul 20, 2018 03:14
== END 2018-07-20 00:55 | disposition expired | DRG 66 ==
LOC: ER 17:27 → MED 18:22
PROVIDERS: ADMIT Family Medicine; ATTEND Family Medicine
DX: I61.0 Nontraumatic intracerebral hemorrhage in hemisphere, subcortical (principal); I10 Essential (primary) hypertension; I48.2 Chronic atrial fibrillation; Z51.5 Encounter for palliative care; F01.50 Vascular dementia, unspecified severity, without behavioral disturbance, psychotic disturbance, mood disturbance, and anxiety; J45.909 Unspecified asthma, uncomplicated; K21.9 Gastro-esophageal reflux disease without esophagitis; D64.9 Anemia, unspecified; I69.320 Aphasia following cerebral infarction; W19.XXXA Unspecified fall, initial encounter; Y92.091 Bathroom in other non-institutional residence as the place of occurrence of the external cause; Y99.8 Other external cause status; Z85.46 Personal history of malignant neoplasm of prostate; Z79.01 Long term (current) use of anticoagulants; Z87.891 Personal history of nicotine dependence
CPT/HCPCS: 70450; 72125; 82040; 82247; 82310; 82374; 82435; 82565; 82947; 84075; 84132; 84155; 84295; 84450; 84460; 84484; 84520; 85025; 85610; 85730; 93005; 96365; 96375; 99284; J2270; J3430; J7050

== ENCOUNTER → 2018-07-19 | Outpatient (CLI) | payer MEDICARE, OTHER ==
[2017-07-01 10:39] VITALS: BMI 15.3
[~2018-07-19] MED LIST changes: -AMLO-111 PO; -AMLO-113 PO; +AMLO-125 PO; +AMLO-127 PO; -AMLO2.5T76 PO; +AMLO2.5T78 PO
== END ==
LOC: AMB 16:58
PROVIDERS: ATTEND Nurse Practitioner
DX: R41.82 Altered mental status, unspecified (principal); R06.89 Other abnormalities of breathing; W18.30XA Fall on same level, unspecified, initial encounter; Y92.091 Bathroom in other non-institutional residence as the place of occurrence of the external cause
CPT/HCPCS: A0425; A0427